=== PATIENT | male | born 1955 | race Caucasian/White ===

== ENCOUNTER 2018-01-17 10:17 | Observation (INO) | payer MEDICARE ==
[2018-01-17] MEDS ORDERED: SODIUM CHLORIDE 0.9% 500 ML IV STA (11:02)
--- NOTE | 2018-01-17 11:05 | ED ---
General Adult HPI - General Chief complaint: Chest Pain Stated complaint: Chest pain Source: patient Mode of arrival: ambulatory Limitations: no limitations - History of Present Illness Initial comments: Dictation was produced using real trends dictation software. please excuse any grammatical, word or spelling errors. Chief Complaint: 62-year-old male past medical history of COPD and apprehension presents with elevated blood pressure and chest discomfort. History of Present Illness: Patient states he's been checking his blood pressure. He says been high for the last 3 or 4 days. He's been checking at home with his personal blood pressure cuff. Present the pharmacist today where he rechecked his blood pressure was found to be high. Patient states that at home he's been getting readings with systolics in the 200s and diastolics in the 100s. He confirmed this blood pressure at the pharmacy. Last week he was at his GP's office where his blood pressure was 140 systolic. Patient states that he had some mild chest discomfort and dizziness over the last 3 days as well. Denies any double similar paresthesias in the arm versus the other. Patient states the chest discomfort is mild and gradual. The ROS documented in this emergency department record has been reviewed and confirmed by me. Those systems with pertinent positive or negative responses have been documented in the HPI. All other systems are other negative and/or noncontributory. - Related Data Home Medications Medication Instructions Recorded Confirmed Albuterol Nebulized [Ventolin 2.5 mg INHALATION RT-Q6H 06/09/15 01/17/18 Nebulized] Fluticasone/Salmeterol [Advair 1 puff INHALATION RT-BID 06/09/15 01/17/18 250-50 Diskus] Ipratropium Nebulized [Atrovent 0.5 mg INHALATION RT-Q6H 06/09/15 01/17/18 Nebulized] Ipratropium/Albuterol Sulfate 1 - 2 puff INHALATION QID PRN 06/09/15 01/17/18 [Combivent Respimat Inhaler] Lisinopril [Prinivil] 10 mg PO DAILY 06/09/15 01/17/18 Montelukast Sodium [Singulair] 10 mg PO HS 06/09/15 01/17/18 Amoxicillin 500 mg PO TID 01/17/18 01/17/18 oxyCODONE-APAP 10-325MG [Percocet 1 tab PO TID PRN 01/17/18 01/17/18 10-325 mg] Allergies Allergy/AdvReac Type Severity Reaction Status Date / Time epidural injections to spine Allergy Rash/Hives Uncoded 06/09/15 10:26 Review of Systems ROS Statement: Those systems with pertinent positive or pertinent negative responses have been documented in the HPI. ROS Other: All systems not noted in ROS Statement are negative. Past Medical History Past Medical History: COPD, Hypertension, Skin Disorder Additional Past Medical History / Comment(s): SEE DR TRUONG'S H&P,EMPHYSEMA, PSORIASIS,STEROIDS MAY 2015 History of Any Multi-Drug Resistant Organisms: None Reported Past Surgical History: Hernia Repair, Orthopedic Surgery Additional Past Surgical History / Comment(s): CERVICAL DISCECTOMY AND FUSION, UMBILICAL HERNIA REPAIR W/ MESH,ORIF RT ELBOW,5TH DIGIT LT HAND REATTACHED WITH PIN PLACEMENT Past Anesthesia/Blood Transfusion Reactions: No Reported Reaction Past Psychological History: No Psychological Hx Reported Smoking Status: Current every day smoker Past Alcohol Use History: None Reported Past Drug Use History: None Reported - Past Family History Mother Family Medical History: Cancer Father Family Medical History: Cancer General Exam - General Exam Comments Initial Comments: PHYSICAL EXAM: General Impression: Alert and oriented x3, not in acute distress HEENT: Normocephalic atraumatic, extra-ocular movements intact, pupils equal and reactive to light bilaterally, mucous membranes moist. Cardiovascular: Heart regular rate and rhythm, S1&S2 audible, no murmurs, rubs or gallops Chest: Lungs clear to auscultation bilaterally, no rhonchi, no wheeze, no rales Abdomen: Bowel sounds present, abdomen soft, non-tender, non-distended, no organomegaly Musculoskeletal: Pulses present and equal in all extremities, no peripheral edema Motor: Power 5/5 bilaterally, no focal deficits noted Neurological: CN II-XII grossly intact, no focal motor or sensory deficits noted Skin: Intact with no visualized rashes Psych: Normal affect and mood Limitations: no limitations Course Vital Signs 01/17/18 01/17/18 10:21 12:31 Temperature 97.8 F Pulse Rate 63 52 L Respiratory 18 18 Rate Blood Pressure 202/99 133/82 O2 Sat by Pulse 99 98 Oximetry Medical Decision Making - Medical Decision Making ED course: 62-year-old male with past medical history of hypertension and COPD presents with elevated blood pressure and chest discomfort. All signs upon arrival shows blood pressure 202/99, worse vital signs within normal limits. Medications reviewed. Patient is taking lisinopril. He has monotherapy.Laboratory evaluation obtained. CBC unremarkable. Coag panel is unremarkable. D-dimer is 1.33, metabolic panel is negative, cardiac enzymes are negative. Chest x-ray shows no acute processes. Given elevated d-dimer CT angioma was performed to evaluate for dissection versus pulmonary embolus. CTA did not show any acute processes. Patient given aspirin. Patient reevaluated found to be in stable medical condition. Patient be admitted to observation for serial troponins. Repeat blood pressure was improved. EKG Interpretation: A 12 lead EKG was obtained. It was interpreted by myself and attending physician. There is a P wave before every QRS complex. Rate is 59. Rhythm is sinus bradycardia, MA interval 200, QRS 100, QTC 41. QT is not prolonged. No ST segment depression or elevation. Overall, this EKG is unremarkable - Lab Data Result diagrams: 01/17/18 10:45 01/17/18 10:45 Lab Results 01/17/18 01/17/18 01/17/18 Range/Units 10:45 10:45 10:45 WBC 7.1 (3.8-10.6) k/uL RBC 4.80 (4.30-5.90) m/uL Hgb 15.2 (13.0-17.5) gm/dL Hct 45.1 (39.0-53.0) % MCV 94.0 (80.0-100.0) fL MCH 31.6 (25.0-35.0) pg MCHC 33.6 (31.0-37.0) g/dL RDW 13.3 (11.5-15.5) % Plt Count 201 (150-450) k/uL Neutrophils % 72 % Lymphocytes % 21 % Monocytes % 4 % Eosinophils % 1 % Basophils % 0 % Neutrophils # 5.1 (1.3-7.7) k/uL Lymphocytes # 1.5 (1.0-4.8) k/uL Monocytes # 0.3 (0-1.0) k/uL Eosinophils # 0.1 (0-0.7) k/uL Basophils # 0.0 (0-0.2) k/uL PT (9.0-12.0) sec INR (<1.2) APTT (22.0-30.0) sec D-Dimer (<0.60) mg/L FEU Sodium 142 (137-145) mmol/L Potassium 4.6 (3.5-5.1) mmol/L Chloride 106 (98-107) mmol/L Carbon Dioxide 25 (22-30) mmol/L Anion Gap 11 mmol/L BUN 15 (9-20) mg/dL Creatinine 0.90 (0.66-1.25) mg/dL Est GFR (CKD-EPI)AfAm >90 (>60 ml/min/1.73 sqM) Est GFR (CKD-EPI)NonAf >90 (>60 ml/min/1.73 sqM) Glucose 95 (74-99) mg/dL Calcium 9.4 (8.4-10.2) mg/dL Magnesium 2.1 (1.6-2.3) mg/dL Total Bilirubin 0.4 (0.2-1.3) mg/dL AST 18 (17-59) U/L ALT 29 (21-72) U/L Alkaline Phosphatase 66 (38-126) U/L Total Creatine Kinase 107 (55-170) U/L CK-MB (CK-2) 2.1 (0.0-2.4) ng/mL CK-MB (CK-2) Rel Index 2.0 Troponin I <0.012 (0.000-0.034) ng/mL NT-Pro-B Natriuret Pep pg/mL Total Protein 7.1 (6.3-8.2) g/dL Albumin 4.2 (3.5-5.0) g/dL 01/17/18 01/17/18 Range/Units 10:45 10:45 WBC (3.8-10.6) k/uL RBC (4.30-5.90) m/uL Hgb (13.0-17.5) gm/dL Hct (39.0-53.0) % MCV (80.0-100.0) fL MCH (25.0-35.0) pg MCHC (31.0-37.0) g/dL RDW (11.5-15.5) % Plt Count (150-450) k/uL Neutrophils % % Lymphocytes % % Monocytes % % Eosinophils % % Basophils % % Neutrophils # (1.3-7.7) k/uL Lymphocytes # (1.0-4.8) k/uL Monocytes # (0-1.0) k/uL Eosinophils # (0-0.7) k/uL Basophils # (0-0.2) k/uL PT 9.9 (9.0-12.0) sec INR 1.0 (<1.2) APTT 20.8 L (22.0-30.0) sec D-Dimer 1.33 H (<0.60) mg/L FEU Sodium (137-145) mmol/L Potassium (3.5-5.1) mmol/L Chloride (98-107) mmol/L Carbon Dioxide (22-30) mmol/L Anion Gap mmol/L BUN (9-20) mg/dL Creatinine (0.66-1.25) mg/dL Est GFR (CKD-EPI)AfAm (>60 ml/min/1.73 sqM) Est GFR (CKD-EPI)NonAf (>60 ml/min/1.73 sqM) Glucose (74-99) mg/dL Calcium (8.4-10.2) mg/dL Magnesium (1.6-2.3) mg/dL Total Bilirubin (0.2-1.3) mg/dL AST (17-59) U/L ALT (21-72) U/L Alkaline Phosphatase (38-126) U/L Total Creatine Kinase (55-170) U/L CK-MB (CK-2) (0.0-2.4) ng/mL CK-MB (CK-2) Rel Index Troponin I (0.000-0.034) ng/mL NT-Pro-B Natriuret Pep 75 pg/mL Total Protein (6.3-8.2) g/dL Albumin (3.5-5.0) g/dL Disposition Clinical Impression: Chest pain Disposition: ADMITTED IP TO THIS [facility] Condition: Fair Referrals: Mikey Nava MD [Primary Care Provider] - 1-2 days Decision Time: 15:28
[2018-01-17 11:35] LABS: Basophils % (A) 0 %; Eosinophils # (A) 0.1 k/uL (0-0.7); Eosinophils % (A) 1 %; HCT 45.1 % (39.0-53.0); HGB 15.2 gm/dL (13.0-17.5); Lymphocytes # (A) 1.5 k/uL (1.0-4.8); Lymphocytes % (A) 21 %; MCH 31.6 pg (25.0-35.0); MCHC 33.6 g/dL (31.0-37.0); Monocytes # (A) 0.3 k/uL (0-1.0); Monocytes % (A) 4 %; Neutrophils # (A) 5.1 k/uL (1.3-7.7); Neutrophils % (A) 72 %; Platelet Count 201 k/uL (150-450); RDW 13.3 % (11.5-15.5); WBC 7.1 k/uL (3.8-10.6)
[2018-01-17 11:51] LABS: Carbon Dioxide 25 mmol/L (22-30); Chloride 106 mmol/L (98-107); Glucose 95 mg/dL (74-99); Potassium 4.6 mmol/L (3.5-5.1); Sodium 142 mmol/L (137-145)
[2018-01-17 11:52] LABS: ALT 29 U/L (21-72); AST 18 U/L (17-59); Albumin 4.2 g/dL (3.5-5.0); Alkaline Phosphatase 66 U/L (38-126); Anion Gap 11 mmol/L; Blood Urea Nitrogen 15 mg/dL (9-20); Calcium 9.4 mg/dL (8.4-10.2); Magnesium 2.1 mg/dL (1.6-2.3); Total Bilirubin 0.4 mg/dL (0.2-1.3); Total Protein 7.1 g/dL (6.3-8.2)
[2018-01-17 12:08] LABS: Creatine Kinase 107 U/L (55-170)
--- NOTE | 2018-01-17 12:14 | XR ---
EXAMINATION TYPE: XR chest 2V DATE OF EXAM: 01/17/2018 COMPARISON: NONE HISTORY: Chest pain and hypertension TECHNIQUE: Frontal and lateral views of the chest are obtained. FINDINGS: There are prominent lung volume suggesting underlying COPD. Postop change noted to the cer vical spine. Patient is rotated, suspect a spinal curvature. Cardiac mediastinal silhouette, pulmonar y vascularity and geni are within normal limits. No evident pneumonia, pneumothorax, or pleural effus ion. Thoracic spondylosis noted. IMPRESSION: No acute cardiopulmonary process.
[2018-01-17 12:18] LABS: Creatine Kinase MB 2.1 ng/mL (0.0-2.4); Troponin I <0.012 ng/mL (0.000-0.034)
[2018-01-17 12:24] LABS: Prothrombin Time 9.9 sec (9.0-12.0)
[2018-01-17 12:28] LABS: D-Dimer 1.33 mg/L FEU (<0.60); Partial Thromboplastin Time 20.8 sec (22.0-30.0)
--- NOTE | 2018-01-17 13:55 | CT ---
EXAMINATION TYPE: CT angio chest DATE OF EXAM: 01/17/2018 COMPARISON: Chest x-ray same date HISTORY: Right scapular and chest pain, shortness of breath. CT DLP: 283.6 mGycm Automated exposure control for dose reduction was used. CONTRAST: CTA scan of the thorax is performed with IV Contrast, patient injected with 100 mL of Isovue M300, pu lmonary embolism protocol. MIP images are created and reviewed. 3D reconstructed images are created on an independent workstation and reviewed. FINDINGS: LUNGS: The lungs are grossly clear, there is no concerning parenchymal mass or nodule identified. T here is no pleural effusion or pneumothorax seen. The tracheobronchial tree is patent. Emphysematous changes are present, some bandlike areas along the pleural margins reflect some atelectatic changes especially at the lung bases. AORTA: No additional significant abnormality is seen. Mild prominence of the ascending and descendin g aorta, there is no significant enhancement which may limit the exam. MEDIASTINUM: There is satisfactory enhancement of the pulmonary artery and its branches, there is no CT evidence for pulmonary embolism. There are no greater than 1 cm hilar or mediastinal lymph nodes. No pericardial effusion is seen. There are coronary artery calcifications. OTHER: No additional significant abnormality is seen. IMPRESSION: NO EVIDENT PULMONARY EMBOLISM. BASILAR ATELECTASIS. CORONARY ARTERY DISEASE. THERE ARE EMPHYSEMATOUS CHANGES PRESENT. ADDITIONAL FINDINGS ABOVE.
[2018-01-17] MEDS ORDERED: ASPIRIN 81 MG PO STA (15:24)
[2018-01-17] MEDS ORDERED: NITROGLYCERIN SL TABS 0.4 MG TAB SUBLINGUAL PRN (15:24)
[2018-01-17 17:39] LABS: Creatine Kinase 94 U/L (55-170)
[2018-01-17 17:52] LABS: Creatine Kinase MB 2.1 ng/mL (0.0-2.4); Troponin I <0.012 ng/mL (0.000-0.034)
[2018-01-17] MEDS ORDERED: IPRATROPIUM-ALBUTEROL 3 ML NEB INHALATION PRN (19:06)
[2018-01-17] MEDS: SYMBICORT 80-4.5 MCG INHALER INHALATION SCH (19:41)
[2018-01-17] MEDS: IPRATROPIUM 0.5 MG/2.5 ML NEBU INHALATION SCH (19:43)
[2018-01-17] MEDS: ALBUTEROL NEBULIZED 2.5 MG/3 ML INHALATION SCH (19:43)
[2018-01-17] MEDS: amLODIPine 5 MG TAB PO SCH (20:23)
[2018-01-17] MEDS: AMOXICILLIN 500 MG CAP PO SCH (20:23)
[2018-01-17] MEDS: oxyCODONE-APAP 10-325MG 1 EACH TAB PO PRN (20:25)
[2018-01-17] MEDS ORDERED: MONTELUKAST 10 MG TAB PO SCH (21:00)
[2018-01-17 23:19] LABS: Creatine Kinase 89 U/L (55-170)
[2018-01-17 23:32] LABS: Creatine Kinase MB 1.8 ng/mL (0.0-2.4); Troponin I <0.012 ng/mL (0.000-0.034)
[2018-01-18] MEDS: ALBUTEROL NEBULIZED 2.5 MG/3 ML INHALATION SCH ×3 (00:05→12:58)
[2018-01-18] MEDS: IPRATROPIUM 0.5 MG/2.5 ML NEBU INHALATION SCH ×3 (00:05→12:58)
[2018-01-18 08:01] LABS: Cholesterol 136 mg/dL (<200); HDL Cholesterol 45 mg/dL (40-60); LDL Cholesterol,Calculated 79 mg/dL (0-99); Triglycerides 60 mg/dL (<150)
[2018-01-18] MEDS: SYMBICORT 80-4.5 MCG INHALER INHALATION SCH (08:03)
[2018-01-18 08:06] VITALS: RESP 18
[2018-01-18] MEDS ORDERED: ASPIRIN 81 MG PO SCH (09:00)
[2018-01-18] MEDS ORDERED: ASPIRIN 325 MG TAB PO SCH (09:00)
[2018-01-18] MEDS ORDERED: LISINOPRIL 10 MG TAB PO SCH (09:00)
[2018-01-18] MEDS ORDERED: AMINOPHYLLINE 500 MG/20 ML VIAL IV PRN (10:20)
[2018-01-18] MEDS ORDERED: REGADENOSON 0.4 MG/5 ML SYRINGE IV ONE (10:20)
--- NOTE | 2018-01-18 11:12 | P.CRDCN ---
History of Present Illness History of present illness: Mr. Danielson is a 62-year-old male past medical history significant for hypertension, COPD and chronic nicotine dependence. He denies history of coronary artery disease, dyslipidemia or diabetes mellitus. We have been asked to see him in consultation for chest pain. He states for the last few days he has been experiencing heavy sensation in the mid-sternal region with radiation through to his upper back between his shoulder blades and into the left axillary region. Both of his hands also feel tingly. He is mildly short of breath as well. He has been checking his blood pressure at home and it has been consistently elevated over 200 systolic, even though he has been taking his prescribed lisinopril. Blood pressure on admission 202/99, repeat this morning 115/72 heart rate 53 afebrile and maintaining oxygen saturation on room air. He has had no further symptoms of chest discomfort since admission. He denies palpitations, nausea, vomiting or diaphoresis. He states he has been feeling pain in his right jaw that is described as tender and worse with movement. He has seen his primary dr as well as specialist and been started on PO antibiotics. He has no teeth. EKG reveals sinus bradycardia heart rate 59, no acute ST or T-wave abnormalities. Chest xray negative for an acute cardiopulmonary process. CTA chest negative for PE with evidence or coronary artery calcifications. No significant abnormality seen within the aorta, mild prominence of the ascending and descending aorta. Laboratory data reviewed, hemoglobin 15.2, platelets 201, d-dimer 1.33, sodium 142, potassium 4.6, magnesium 2.1, creatinine 0.9, cardiac enzymes negative 3, LDL 79, HDL 45. NT proBNP 75. Current cardiac medications include lisinopril 10 mg daily. Review of Systems At the time of my exam: CONSTITUTIONAL: Denies fever. Denies chills. EYES: Denies blurred vision. Denies vision changes. Denies eye pain. EARS, NOSE, MOUTH & THROAT: Denies headache. Denies sore throat. Denies ear pain. CARDIOVASCULAR: Denies chest pain. Denies shortness of breath. Denies orthopnea. Denies PND. Denies palpitations. RESPIRATORY: Denies cough. GASTROINTESTINAL: Denies abdominal pain. Denies diarrhea. Denies constipation. Denies nausea. Denies vomiting. MUSCULOSKELETAL: Denies myalgias. INTEGUMENTARY: Denies pruitis. Denies rash. NEUROLOGIC: Denies numbness. Denies tingling. Denies weakness. PSYCHIATRIC: Denies anxiety. Denies depression. ENDOCRINE: Denies fatigue. Denies weight change. Denies polydipsia. Denies polyurina. GENITOURINARY: Denies burning, hematuria or urgency with micturation. HEMATOLOGIC: Denies history of anemia. Denies bleeding. Past Medical History Past Medical History: COPD, Hypertension, Osteoarthritis (OA), Skin Disorder Additional Past Medical History / Comment(s): SEE DR TRUONG'S H&P,EMPHYSEMA, PSORIASIS.hep c(received tx)DDD History of Any Multi-Drug Resistant Organisms: None Reported Past Surgical History: Hernia Repair, Orthopedic Surgery Additional Past Surgical History / Comment(s): CERVICAL DISCECTOMY AND FUSION, UMBILICAL HERNIA REPAIR W/ MESH,ORIF RT ELBOW,5TH DIGIT LT HAND REATTACHED WITH PIN PLACEMENT, COLONOSCPY/POLYS REMOVED WERE BENIGN, TILT TABLE TEST 2015 Past Anesthesia/Blood Transfusion Reactions: No Reported Reaction Additional Past Anesthesia/Blood Transfusion Reaction / Comment(s): CLAUSTERPHOBIA Smoking Status: Current every day smoker - Past Family History Mother Family Medical History: Cancer Additional Family Medical History / Comment(s): LUNG CANCER Father Family Medical History: Cancer Additional Family Medical History / Comment(s): FROM LUNG CANCER Medications and Allergies Home Medications Medication Instructions Recorded Confirmed Type Albuterol Nebulized [Ventolin 2.5 mg INHALATION RT-Q6H 06/09/15 01/17/18 History Nebulized] Fluticasone/Salmeterol [Advair 1 puff INHALATION RT-BID 06/09/15 01/17/18 History 250-50 Diskus] Ipratropium Nebulized [Atrovent 0.5 mg INHALATION RT-Q6H 06/09/15 01/17/18 History Nebulized] Ipratropium/Albuterol Sulfate 1 - 2 puff INHALATION QID PRN 06/09/15 01/17/18 History [Combivent Respimat Inhaler] Lisinopril [Prinivil] 10 mg PO DAILY 06/09/15 01/17/18 History Montelukast Sodium [Singulair] 10 mg PO HS 06/09/15 01/17/18 History Amoxicillin 500 mg PO TID 01/17/18 01/17/18 History oxyCODONE-APAP 10-325MG [Percocet 1 tab PO TID PRN 01/17/18 01/17/18 History 10-325 mg] Allergies Allergy/AdvReac Type Severity Reaction Status Date / Time epidural injections to spine Allergy Rash/Hives Uncoded 06/09/15 10:26 Physical Exam Vitals: Vital Signs Temp Pulse Pulse Resp BP BP Pulse Ox 01/18/18 03:42 16 01/18/18 03:35 98.0 F 52 L 16 131/75 96 01/17/18 23:44 97.6 F 53 L 16 129/68 95 01/17/18 23:39 16 01/17/18 20:00 16 01/17/18 18:56 97 01/17/18 18:34 97.6 F 56 L 16 147/77 98 01/17/18 17:31 98.2 F 60 18 160/89 98 01/17/18 15:41 57 L 18 171/83 98 01/17/18 12:31 52 L 18 133/82 98 01/17/18 10:21 97.8 F 63 18 202/99 99 Intake and Output 01/17/18 01/17/18 01/18/18 14:59 22:59 06:59 Other: Voiding Method Toilet Toilet # Voids 2 Weight 81.647 kg 82.6 kg Blood pressure 131/75 heart rate 52 afebrile maintaining oxygen saturation on room air GENERAL: This is a 62-year-old female in no apparent distress at the time of my examination. HEENT: Head is atraumatic, normocephalic. Pupils are equal, round. Sclerae anicteric. Conjunctivae are clear. Mucous membranes of the mouth are moist. Neck is supple. There is no jugular venous distention. No carotid bruit is heard. LUNGS: Clear to auscultation no wheezes, rales or rhonchi. No chest wall tenderness is noted on palpation or with deep breathing. Diminished bilaterally. HEART: Regular rate and rhythm without murmurs, rubs or gallops. S1 and S2 heard. ABDOMEN: Soft, nontender. Bowel sounds are heard. No organomegaly noted. EXTREMITIES: No evidence of peripheral edema and no calf tenderness noted. VASCULAR: Radial and dorsalis pedis pulses palpated, no evidence of clubbing. NEUROLOGIC: Patient is awake, alert and oriented x3. Results 01/17/18 10:45 01/17/18 10:45 Cardiac Enzymes 01/17/18 01/17/18 01/17/18 Range/Units 10:45 10:45 16:47 AST 18 (17-59) U/L CK-MB (CK-2) 2.1 2.1 (0.0-2.4) ng/mL Troponin I <0.012 <0.012 (0.000-0.034) ng/mL 01/17/18 Range/Units 22:33 AST (17-59) U/L CK-MB (CK-2) 1.8 (0.0-2.4) ng/mL Troponin I <0.012 (0.000-0.034) ng/mL Coagulation 01/17/18 Range/Units 10:45 PT 9.9 (9.0-12.0) sec APTT 20.8 L (22.0-30.0) sec CBC 01/17/18 Range/Units 10:45 WBC 7.1 (3.8-10.6) k/uL RBC 4.80 (4.30-5.90) m/uL Hgb 15.2 (13.0-17.5) gm/dL Hct 45.1 (39.0-53.0) % Plt Count 201 (150-450) k/uL Comprehensive Metabolic Panel 01/17/18 Range/Units 10:45 Sodium 142 (137-145) mmol/L Potassium 4.6 (3.5-5.1) mmol/L Chloride 106 (98-107) mmol/L Carbon Dioxide 25 (22-30) mmol/L BUN 15 (9-20) mg/dL Creatinine 0.90 (0.66-1.25) mg/dL Glucose 95 (74-99) mg/dL Calcium 9.4 (8.4-10.2) mg/dL AST 18 (17-59) U/L ALT 29 (21-72) U/L Alkaline Phosphatase 66 (38-126) U/L Total Protein 7.1 (6.3-8.2) g/dL Albumin 4.2 (3.5-5.0) g/dL Current Medications Generic Name Dose Route Start Last Admin Trade Name Freq PRN Reason Stop Dose Admin Albuterol Sulfate 2.5 mg 01/17/18 20:00 01/18/18 00:05 Ventolin Nebulized INHALATION Not Given RT-Q6H [facility] Albuterol/Ipratropium 3 ml 01/17/18 19:06 Duoneb 0.5 Mg-3 Mg/3 Ml Soln INHALATION RT-QID PRN Shortness Of Breath Amlodipine Besylate 5 mg 01/17/18 21:00 01/17/18 20:23 Norvasc PO 5 mg BID VENKATA Administration Amoxicillin 500 mg 01/17/18 22:00 01/17/18 20:23 Amoxicillin PO 500 mg TID VENKATA Administration Aspirin 325 mg 01/18/18 09:00 Aspirin PO DAILY [facility] Budesonide/Formoterol Fumarate 2 puff 01/17/18 20:00 01/17/18 19:41 Symbicort 80-4.5 Mcg Inhaler INHALATION 2 puff RT-BID [facility] Administration Ipratropium [place] 0.5 mg 01/17/18 20:00 01/18/18 00:05 Atrovent Nebulized INHALATION Not Given RT-Q6H [facility] Lisinopril 10 mg 01/18/18 09:00 Zestril PO DAILY [facility] Montelukast Sodium 10 mg 01/17/18 21:00 01/17/18 20:23 Singulair PO 10 mg HS [facility] Administration Nitroglycerin 0.4 mg 01/17/18 15:24 Nitrostat SUBLINGUAL Q5M PRN Chest Pain Oxycodone/Acetaminophen 1 each 01/17/18 19:06 01/17/18 20:25 Percocet 10-325 PO 1 each TID PRN Administration Pain Intake and Output 01/17/18 01/17/18 01/18/18 14:59 22:59 06:59 Other: Voiding Method Toilet Toilet # Voids 2 Weight 81.647 kg 82.6 kg Patient Weight 01/18/18 06:59 Weight 82.6 kg 01/17/18 10:45 01/17/18 10:45 Assessment and Plan Assessment: ASSESSMENT Chest pain, atypical. An acute coronary event has been ruled out with no EKG evidence of ischemia and negative cardiac enzymes. Elevated d-dimer, PE has been ruled out. Hypertensive urgency, amlodipine has been added primary. Blood pressure is much better controlled. COPD Chronic nicotine dependence PLAN Obtain 2-D echocardiogram and Doppler study to assess cardiac structure and function. Perform Lexiscan stress test to assess for reversible cardiac ischemia. Continue lisinopril and amlodipine as ordered. If stress test is normal he is stable from a cardiac perspective, if abnormal we will consider coronary angiography. Thank you kindly for this consultation. Nurse Practitioner note has been reviewed, I agree with a documented findings and plan of care. Patient was seen and examined.
--- NOTE | 2018-01-18 11:52 | ECHOF ---
Referral Reason: MEASUREMENTS -------- HEIGHT: 182.9 cm WEIGHT: 82.6 kg BP: 131/75 IVSd: 1.2 cm (0.6 - 1.1) LVIDd: 4.0 cm (3.9 - 5.3) LVPWd: 1.3 cm (0.6 - 1.1) IVSs: 1.4 cm LVIDs: 3.4 cm LVPWs: 1.1 cm LA Diam: 3.3 cm (2.7 - 3.8) Ao Diam: 3.0 cm (2.0 - 3.7) AV Cusp: 1.7 cm (1.5 - 2.6) LA Diam: 2.9 cm (2.7 - 3.8) MV EXCURSION: 19.436 mm (> 18.000) MV EF SLOPE: 99 mm/s (70 - 150) EPSS: 0.3 cm MV E Hari: 0.73 m/s MV DecT: 206 ms MV A Hari: 0.78 m/s MV E/A Ratio: 0.93 RAP: 5.00 mmHg RVSP: 16.54 mmHg FINDINGS -------- Sinus rhythm. This was a technically adequate study. The left ventricular size is normal. There is mild concentric left ventricular hypertrophy. Overa ll left ventricular systolic function is normal with, an EF between 55 - 60 %. The right ventricle is normal in size. The left atrial size is normal. The right atrial size is normal. The aortic valve is trileaflet, and appears structurally normal. No aortic stenosis or regurgitation. Mild mitral regurgitation is present. Mild tricuspid regurgitation present. There is no evidence of pulmonary hypertension. The right v entricular systolic pressure, as measured by Doppler, is 16.54mmHg. The pulmonic valve was not well visualized. The aortic root size is normal. There is no pericardial effusion. CONCLUSIONS -------- 1. The left ventricular size is normal. 2. Overall left ventricular systolic function is normal with, an EF between 55 - 60 %. 3. The right ventricle is normal in size. 4. The left atrial size is normal. 5. The right atrial size is normal. 6. The aortic valve is trileaflet, and appears structurally normal. No aortic stenosis or regurgitati on. 7. Mild mitral regurgitation is present. 8. Mild tricuspid regurgitation present. 9. There is no evidence of pulmonary hypertension. 10. The right ventricular systolic pressure, as measured by Doppler, is 16.54mmHg. 11. The pulmonic valve was not well visualized. 12. The aortic root size is normal. 13. There is no pericardial effusion. BRANCH DIRECTOR: Sandi Enriquez RDCS
[2018-01-18] MEDS: amLODIPine 5 MG TAB PO SCH (12:27)
[2018-01-18] MEDS: AMOXICILLIN 500 MG CAP PO SCH (12:28)
[2018-01-18] MEDS: oxyCODONE-APAP 10-325MG 1 EACH TAB PO PRN (12:33)
[2018-01-18 12:36] VITALS: BP 118/74; PULSE 64; TEMP 98.1
--- NOTE | 2018-01-18 13:16 | NM ---
EXAMINATION TYPE: NM stress lexiscan cardiolite DATE OF EXAM: 01/18/2018 COMPARISON: Chest x-ray 01/17/2018 HISTORY: Chest pain TECHNIQUE: After the intravenous administration of 9.9 mCi Tc 99m Sestamibi - Cardiolite resting SPE CT images acquired 1045 minutes post injection. The patient received 0.4mg Lexiscan, 22.8 mCi Tc 99m Sestamibi - Stress images obtained 1130 minutes post injection FINDINGS: Review of stress and rest SPECT images demonstrates decreased radio pharmaceutical uptake along the i nferior wall left ventricle on stress and rest images extending to the apex. Gated analysis shows nor mal wall motion with an estimated left ventricular ejection fraction of 67 %. 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 Consider echocardiography for elevated ejection fr action
--- NOTE | 2018-01-18 17:04 | EST ---
EXERCISE STRESS AGE: 62 SEX: M HT: 6 foot 1 WT: 180 PROTOCOL: Lexiscan Cardiolite HEART RATE REST: 52 BLOOD PRESSURE REST: 120/67 MAXIMUM HEART RATE ACHIEVED: 78 MAXIMUM BLOOD PRESSURE: 117/68 85% MPHR: 135 100% MPHR: 159 INDICATIONS: Chest pain. CLINICAL INFORMATION: Patient was given Lexiscan injection over a period of 15 seconds. Peak heart rate of 72 was achieved. Maximum blood pressure 117/68 mmHg was noted. Resting EKG shows normal sinus rhythm with normal GA interval and QRS duration and normal ST-T waves. No ST- segment depression suggestive of ischemia is noted. The results of the nuclear study will follow. OMARI / IJN: [id number] /
--- NOTE | 2018-01-19 14:27 | P.HPIM ---
History of Present Illness H&P Date: 01/18/18 Chief Complaint: Chest pain HISTORY AND PHYSICAL AND DISCHARGE SUMMARY: This is a 62-year-old male patient of Dr. Nava with a past medical history of COPD, hypertension, osteoarthritis, psoriasis, hepatitis C status post treatment. Patient states that for the past 2-3 days blood pressure has been high and he has had chest pain. The pain is in the left shoulder blade and around the left under arm area. He states it feels like a heavy bag of [place] on his chest. His blood pressure was greater than 200 and he called his doctor he was told to go into the hospital for evaluation. He does give history of having increased stress for the past couple months. He has no history of myocardial infarction but he does have a brother with history. Patient states he had syncopal episode 1 year ago and have stress test and tilt table test done at [facility] that was negative. Patient was placed on the observation unit and cardiology consult requested. Troponins have been negative on 3 draws. Triglycerides 60, cholesterol 136, LDL 79 and HDL 45. Chest x-ray shows no acute finding. CTA of the chest shows no embolism. Bibasilar atelectasis. Coronary artery disease. Emphysematous changes present. Echocardiogram reveals EF of 55-60%, mild mitral regurgitation, mild tricuspid regurgitation. No pulmonary hypertension. Patient underwent Lexiscan Cardiolite stress test that showed no evidence of reversible ischemia. 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 Amlodipine was added to his medication regime with improvement of his blood pressure. Patient was cleared by cardiology for discharge and will be discharged home today in stable condition. Discharge Medication List Albuterol Nebulized [Ventolin Nebulized] 2.5 mg INHALATION RT-Q6H 06/09/15 [ History] Fluticasone/Salmeterol [Advair 250-50 Diskus] 1 puff INHALATION RT-BID 06/09/15 [History] Ipratropium Nebulized [Atrovent Nebulized] 0.5 mg INHALATION RT-Q6H 06/09/15 [ History] Ipratropium/Albuterol Sulfate [Combivent Respimat Inhaler] 1 - 2 puff INHALATION QID PRN 06/09/15 [History] Lisinopril [Prinivil] 10 mg PO DAILY 06/09/15 [History] Montelukast Sodium [Singulair] 10 mg PO HS 06/09/15 [History] Amoxicillin 500 mg PO TID 01/17/18 [History] oxyCODONE-APAP 10-325MG [Percocet 10-325 mg] 1 tab PO TID PRN 01/17/18 [History] Aspirin 81 mg PO DAILY chew 01/18/18 [Rx] amLODIPine [Norvasc] 5 mg PO BID #60 tab 01/18/18 [Rx] Review of Systems All systems: negative Constitutional: Denies chills, Denies fatigue, Denies fever, Denies poor appetite, Denies weight loss Eyes: denies blurred vision, denies pain Ears, nose, mouth and throat: Denies dysphagia, Denies headache, Denies sore throat, Denies vertigo Cardiovascular: Reports chest pain, Denies lightheadedness, Denies shortness of breath, Denies syncope Respiratory: Denies cough, Denies cough with sputum, Denies dyspnea, Denies excessive sputum, Denies hemoptysis, Denies home oxygen, Denies wheezing Gastrointestinal: Denies abdominal pain, Denies diarrhea, Denies nausea, Denies vomiting Musculoskeletal: Denies myalgias Integumentary: Denies pruritus, Denies rash Neurological: Denies numbness, Denies weakness Psychiatric: Denies anxiety, Denies depression Endocrine: Denies fatigue, Denies weight change Past Medical History Past Medical History: COPD, Hypertension, Osteoarthritis (OA), Skin Disorder Additional Past Medical History / Comment(s): SEE DR TRUONG'S H&P,EMPHYSEMA, PSORIASIS.hep c(received tx)DDD History of Any Multi-Drug Resistant Organisms: None Reported Past Surgical History: Hernia Repair, Orthopedic Surgery Additional Past Surgical History / Comment(s): CERVICAL DISCECTOMY AND FUSION, UMBILICAL HERNIA REPAIR W/ MESH,ORIF RT ELBOW,5TH DIGIT LT HAND REATTACHED WITH PIN PLACEMENT, COLONOSCPY/POLYS REMOVED WERE BENIGN, TILT TABLE TEST 2015 Past Anesthesia/Blood Transfusion Reactions: No Reported Reaction Additional Past Anesthesia/Blood Transfusion Reaction / Comment(s): CLAUSTERPHOBIA Smoking Status: Current every day smoker - Past Family History Mother Family Medical History: Cancer Additional Family Medical History / Comment(s): LUNG CANCER Father Family Medical History: Cancer Additional Family Medical History / Comment(s): FROM LUNG CANCER Brother(s) Additional Family Medical History / Comment(s): Patient has one brother with history of myocardial infarction. Medications and Allergies Home Medications Medication Instructions Recorded Confirmed Type Albuterol Nebulized [Ventolin 2.5 mg INHALATION RT-Q6H 06/09/15 01/17/18 History Nebulized] Fluticasone/Salmeterol [Advair 1 puff INHALATION RT-BID 06/09/15 01/17/18 History 250-50 Diskus] Ipratropium Nebulized [Atrovent 0.5 mg INHALATION RT-Q6H 06/09/15 01/17/18 History Nebulized] Ipratropium/Albuterol Sulfate 1 - 2 puff INHALATION QID PRN 06/09/15 01/17/18 History [Combivent Respimat Inhaler] Lisinopril [Prinivil] 10 mg PO DAILY 06/09/15 01/17/18 History Montelukast Sodium [Singulair] 10 mg PO HS 06/09/15 01/17/18 History Amoxicillin 500 mg PO TID 01/17/18 01/17/18 History oxyCODONE-APAP 10-325MG [Percocet 1 tab PO TID PRN 01/17/18 01/17/18 History 10-325 mg] Aspirin 81 mg PO DAILY chew 01/18/18 Rx amLODIPine [Norvasc] 5 mg PO BID #60 tab 01/18/18 Rx Allergies Allergy/AdvReac Type Severity Reaction Status Date / Time epidural injections to spine Allergy Rash/Hives Uncoded 06/09/15 10:26 Physical Exam Vitals: Vital Signs Temp Pulse Pulse Resp BP BP Pulse Ox 01/18/18 12:35 98.1 F 64 18 118/74 98 01/18/18 08:16 56 L 01/18/18 08:03 56 L 01/18/18 07:45 97.7 F 53 L 18 115/72 97 01/18/18 03:42 16 01/18/18 03:35 98.0 F 52 L 16 131/75 96 01/17/18 23:44 97.6 F 53 L 16 129/68 95 01/17/18 23:39 16 01/17/18 20:00 16 09/11/18 18:56 97 01/17/18 18:34 97.6 F 56 L 16 147/77 98 01/17/18 17:31 98.2 F 60 18 160/89 98 01/17/18 15:41 57 L 18 171/83 98 Intake and Output 01/18/18 01/18/18 01/18/18 06:59 14:59 22:59 Intake Total 300 Balance 300 Intake: Oral 200 Other 100 Other: Voiding Method Toilet Toilet Weight 82.554 kg Gen: This is a 62-year-old male patient. He is sitting on the bed and appears to be comfortable and in no acute distress. HEENT: Head is atraumatic, normocephalic. Pupils equal, round. Sclerae is anicteric. NECK: Supple. No JVD. No lymphadenopathy. No thyromegaly. LUNGS: Clear to auscultation. No wheezes or rhonchi. No intercostal retractions. HEART: Regular rate and rhythm. No murmur. ABDOMEN: Soft. Bowel sounds are present. No masses. No tenderness. EXTREMITIES: No pedal edema. No calf tenderness. NEUROLOGICAL: Patient is awake, alert and oriented x3. Cranial nerves 2 through 12 are grossly intact. Results CBC & Chem 7: 01/17/18 10:45 01/17/18 10:45 Thrombosis Risk Factor Assmnt - Choose All That Apply Any of the Below Risk Factors Present?: No Assessment and Plan Plan: 1. Chest pain to the left scapula, acute coronary syndrome ruled out. 2. Uncontrolled hypertension. 3. COPD, stable without exacerbation. Patient placed on the observation unit. Discharge plan: Home Impression and plan of care have been directed as dictated by the signing physician. Kinjal Sen nurse practitioner acting as scribe for signing physician.
== END 2018-01-18 14:20 | disposition home or self-care (01) ==
LOC: EC 10:17 → 3OBS 15:24
PROVIDERS: ADMIT Internal Medicine; ATTEND Internal Medicine
DX: R07.89 Other chest pain (principal); I16.0 Hypertensive urgency; I10 Essential (primary) hypertension; I25.10 Atherosclerotic heart disease of native coronary artery without angina pectoris; J44.9 Chronic obstructive pulmonary disease, unspecified; R79.89 Other specified abnormal findings of blood chemistry; F17.200 Nicotine dependence, unspecified, uncomplicated; M19.90 Unspecified osteoarthritis, unspecified site; L40.9 Psoriasis, unspecified; Z79.51 Long term (current) use of inhaled steroids; Z79.899 Other long term (current) drug therapy; Z79.2 Long term (current) use of antibiotics; Z88.8 Allergy status to other drugs, medicaments and biological substances; Z86.19 Personal history of other infectious and parasitic diseases; Z98.1 Arthrodesis status; Z80.9 Family history of malignant neoplasm, unspecified; Z80.1 Family history of malignant neoplasm of trachea, bronchus and lung; Z82.49 Family history of ischemic heart disease and other diseases of the circulatory system
CPT/HCPCS: 96361 ×4; 96360 ×2; 99285 ×2; 93005 ×2; 36415; 94640 ×3; 93017; 93306; 85379; 83880; 80061; 80053; 82550; 82553; 83735; 84484; 85025; 85610; 85730; 71046; 71275; 78452; G0378 ×2; A9500; J2785; Q9967